=== PATIENT | male | born 1975 | race Caucasian/White ===

== ENCOUNTER 2016-10-07 13:46 | Emergency (ER) | payer OTHER ==
[~2016-10-07] VITALS: Ht 182.9 cm; Wt 127.8 kg
[~2016-10-07 13:46] MED LIST: ALLERGY MED; BENTYL10 MG PO; BENTYL20 MG PO; CIPRO500 MG PO; DEPAKOTE; DEPAKOTE500 MG PO; Depakote PO; FLAGYL250 MG PO; FLAGYL500 MG PO; FLONASE16 G1 BOTH NARES; FLORA-Q CAPSUL1 EACH PO; Flagyl PO; KENALOG,ARISTOC80 GM PO; KEPPRA500 MG PO; METRONIDAZOLE500 MG PO; NASONEX17 GM NS; PAIN RELIEF EX500 MG PO; SINGULAIR; SINGULAIR10 MG PO; TEGRETOL; TEGRETOL200 MG PO; TEGretol PO; TYLENOL WITH C1 EACH PO; ULTRAM50 MG PO; VANCOMYCIN HCL125 MG PO; [UNRECOGNIZED DRUG - OTHER] PO
[2016-10-07 14:54] LABS: BASOPHIL COUNT 0.1 K/uL (0-0.1); EOSINOPHIL (%) 0 % (0-5); HEMATOCRIT 37.4 % (38.0-50.0); IMMATURE GRANULOCYTE (%) 1.3 % (0.0-0.7); IMMATURE GRANULOCYTE COUNT 0.1 K/uL; INSTRUMENT ABS NEUTROPHIL CT 4.6 K/uL; LYMPHOCYTE COUNT 1.5 K/uL (1.0-2.8); MCH 29.7 PG (29.0-34.0); MCHC 32.4 G/DL (30.0-36.0); MCV 91.7 FL (86-99); MEAN PLAT.VOLUME 10.4 uM^3 (9.0-12.4); MONOCYTE (%) 12.5 % (3-12); MONOCYTE COUNT 0.9 K/uL (0-0.8); NEUTROPHIL (%) 64.2 % (45-76); NEUTROPHIL COUNT 4.6 K/uL (1.8-6.4); PLATELET COUNT 205 K/uL (156-360); RBC DIS.WIDTH-CV 12.7 % (11.8-14.6); RED BLOOD COUNT 4.08 M/uL (4.00-5.50); WHITE BLOOD COUNT 7.2 K/uL (4.1-10.2)
[2016-10-07 15:01] LABS: CHLORIDE 105 mEq/L (99-109); POTASSIUM 5.7 mEq/L (3.7-5.4); SODIUM 140 mEq/L (136-147)
[2016-10-07 15:03] LABS: GLUCOSE 79 mg/dL (70-99)
[2016-10-07 15:04] LABS: ANION GAP 11 MEQ/L (2-14)
[2016-10-07 15:07] LABS: GFR ESTIMATE (CALCULATED) 42 mL/min/
[2016-10-07 15:08] LABS: UREA NITROGEN (BUN) 34 mg/dL (9-23)
[2016-10-07 15:14] LABS: TROP-I INTERPRETATION NEGATIVE; TROPONIN-I 0.02 ng/mL (0.0-0.30)
[2016-10-07 19:17] VITALS: BP 93/52
== END 2016-10-07 19:24 | disposition home or self-care (01) ==
LOC: EME 13:46
PROVIDERS: Emergency Medicine
DX: R55 Syncope and collapse (principal); E87.5 Hyperkalemia; R05 Cough; R53.1 Weakness; G40.909 Epilepsy, unspecified, not intractable, without status epilepticus; Z87.891 Personal history of nicotine dependence
CPT/HCPCS: 80048; 84484; 85025; 93005; 99281; 99285; J7030

== ENCOUNTER 2016-11-07 12:49 | Inpatient (IN) | payer OTHER ==
[~2016-11-07] VITALS: Ht 188 cm; Wt 125.0 kg
[2016-11-07 13:29] LABS: MCH 29.8 PG (29.0-34.0); MCHC 32.7 G/DL (30.0-36.0); MCV 90.9 FL (86-99); MEAN PLAT.VOLUME 10.3 uM^3 (9.0-12.4); PLATELET COUNT 196 K/uL (156-360); RBC DIS.WIDTH-CV 12.5 % (11.8-14.6); RBC DIS.WIDTH-SD 41.5 % (39-53); RED BLOOD COUNT 3.63 M/uL (4.00-5.50); WHITE BLOOD COUNT 4.7 K/uL (4.1-10.2)
[2016-11-07 13:37] LABS: CHLORIDE 104 mEq/L (99-109); SODIUM 138 mEq/L (136-147)
[2016-11-07 13:40] LABS: GLUCOSE 123 mg/dL (70-99)
[2016-11-07 13:41] LABS: ANION GAP 10 MEQ/L (2-14)
[2016-11-07 13:42] LABS: TOTAL BILIRUBIN 0.3 mg/dL (0.0-1.0)
[2016-11-07 13:43] LABS: ALKALINE PHOSPHATASE 58 IU/L (3-129); GFR ESTIMATE (CALCULATED) 27 mL/min/
[2016-11-07 13:44] LABS: UREA NITROGEN (BUN) 45 mg/dL (9-23)
[2016-11-07 13:47] LABS: LIPASE 63 U/L (1.0-51.0)
[2016-11-07 15:09] LABS: C DIFF TOXIN POSITIVE (NEGATIVE); PROBE CHECK PASS
[2016-11-07] MEDS ORDERED: KEPPRA750 MG PO (16:23)
[2016-11-07] MEDS ORDERED: FENOFIBRATE145 M1 PO (16:24)
[2016-11-07] MEDS ORDERED: LEVOTHYROXINE50 MCG PO (16:24)
[2016-11-07] MEDS ORDERED: SALINE NASAL SP45 ML BOTH NARES (16:24)
[2016-11-07] MEDS ORDERED: DEPAKOTE500 MG PO (16:24)
[2016-11-07 17:55] VITALS: BP 128/71
[2016-11-07 21:59] LABS: ANION GAP 9 MEQ/L (2-14); CHLORIDE 107 MEQ/L (99-109); SAMPLE HEMOLYSIS CHECK 0; SAMPLE ICTERIC CHECK 0; SAMPLE LIPEMIA CHECK 0; SODIUM 138 MEQ/L (136-147); UREA NITROGEN (BUN) 42 mg/dL (9-23)
[2016-11-07 22:06] LABS: GFR ESTIMATE (CALCULATED) 38 mL/min/; GLUCOSE 90 mg/dL (70-99); POTASSIUM 4.5 MEQ/L (3.7-5.4)
[2016-11-07 23:17] VITALS: BP 128/79
[2016-11-08 04:38] LABS: HEMATOCRIT 30.8 % (38.0-50.0); MCH 29.9 PG (29.0-34.0); MCHC 32.5 G/DL (30.0-36.0); MCV 91.9 FL (86-99); MEAN PLAT.VOLUME 10.2 uM^3 (9.0-12.4); PLATELET COUNT 169 K/uL (156-360); RBC DIS.WIDTH-CV 12.4 % (11.8-14.6); RBC DIS.WIDTH-SD 41.7 % (39-53); RED BLOOD COUNT 3.35 M/uL (4.00-5.50); WHITE BLOOD COUNT 5.6 K/uL (4.1-10.2)
[2016-11-08 04:45] LABS: CHLORIDE 111 mEq/L (99-109); POTASSIUM 4.3 mEq/L (3.7-5.4); SODIUM 138 mEq/L (136-147)
[2016-11-08 04:48] LABS: GLUCOSE 90 mg/dL (70-99)
[2016-11-08 04:49] LABS: ANION GAP 9 MEQ/L (2-14); TOTAL BILIRUBIN 0.3 mg/dL (0.0-1.0)
[2016-11-08 04:51] LABS: ALKALINE PHOSPHATASE 43 IU/L (3-129); GFR ESTIMATE (CALCULATED) 45 mL/min/
[2016-11-08 04:52] LABS: UREA NITROGEN (BUN) 33 mg/dL (9-23)
[2016-11-08 07:20] VITALS: BP 118/68
[2016-11-08 15:37] VITALS: BP 120/78
[2016-11-08 23:06] VITALS: BP 135/58
[2016-11-09 03:58] VITALS: BP 121/61
[2016-11-09 06:54] LABS: EOSINOPHIL (%) 0 % (0-5); HEMATOCRIT 30.5 % (38.0-50.0); IMMATURE GRANULOCYTE COUNT 0.1 K/uL; INSTRUMENT ABS NEUTROPHIL CT 2.6 K/uL; LYMPHOCYTE COUNT 1.7 K/uL (1.0-2.8); MCH 29.4 PG (29.0-34.0); MCHC 31.5 G/DL (30.0-36.0); MCV 93.6 FL (86-99); MEAN PLAT.VOLUME 10.6 uM^3 (9.0-12.4); MONOCYTE COUNT 0.7 K/uL (0-0.8); NEUTROPHIL (%) 50.9 % (45-76); NEUTROPHIL COUNT 2.6 K/uL (1.8-6.4); PLATELET COUNT 154 K/uL (156-360); RBC DIS.WIDTH-CV 12.5 % (11.8-14.6); RED BLOOD COUNT 3.26 M/uL (4.00-5.50); WHITE BLOOD COUNT 5.2 K/uL (4.1-10.2)
[2016-11-09] MEDS ORDERED: VANCOCIN HCL125 MG PO (07:07)
[2016-11-09 07:22] LABS: ALKALINE PHOSPHATASE 32 IU/L (3-129); ANION GAP 9 MEQ/L (2-14); CHLORIDE 109 MEQ/L (99-109); GFR ESTIMATE (CALCULATED) 51 mL/min/; GLUCOSE 76 mg/dL (70-99); POTASSIUM 4.6 MEQ/L (3.7-5.4); SAMPLE HEMOLYSIS CHECK 0; SAMPLE ICTERIC CHECK 0; SAMPLE LIPEMIA CHECK 0; SODIUM 139 MEQ/L (136-147); TOTAL BILIRUBIN 0.4 MG/DL (0.0-1.0); UREA NITROGEN (BUN) 19 mg/dL (9-23)
[2016-11-09 07:36] VITALS: BP 126/65
[2016-11-09 11:47] VITALS: BP 129/66
== END 2016-11-09 13:10 | disposition home or self-care (01) | DRG 372 ==
LOC: EME 12:49 → EDOF 16:21 → 5EAST 16:21
PROVIDERS: Emergency Medicine; Nurse Practitioner Adult Health; Pediatrics
DX: A04.7 Enterocolitis due to Clostridium difficile (principal); N17.9 Acute kidney failure, unspecified; E87.5 Hyperkalemia; E11.9 Type 2 diabetes mellitus without complications; D64.9 Anemia, unspecified; R56.9 Unspecified convulsions; F79 Unspecified intellectual disabilities
CPT/HCPCS: 80048 91; 80053; 83605; 83690; 85025; 85027; 87493; 93005; 99281; 99285; J7030

== ENCOUNTER 2017-01-14 16:01 | Inpatient (IN) | payer OTHER ==
[~2017-01-14] VITALS: Ht 182.9 cm; Wt 118.5 kg
[~2017-01-14 16:01] MED LIST changes: +FENOFIBRATE145 M1 PO; +KEPPRA750 MG PO; +LEVOTHYROXINE50 MCG PO; +SALINE NASAL SP45 ML BOTH NARES; +VANCOCIN HCL125 MG PO
[2017-01-14 17:54] LABS: HEMATOCRIT 33.3 % (38.0-50.0); MCH 29.9 PG (29.0-34.0); MCHC 32.7 G/DL (30.0-36.0); MCV 91.2 FL (86-99); MEAN PLAT.VOLUME 10.7 uM^3 (9.0-12.4); PLATELET COUNT 170 K/uL (156-360); RBC DIS.WIDTH-CV 12.8 % (11.8-14.6); RED BLOOD COUNT 3.65 M/uL (4.00-5.50); WHITE BLOOD COUNT 10.4 K/uL (4.1-10.2)
[2017-01-14 18:04] LABS: CHLORIDE 103 mEq/L (99-109); POTASSIUM 5.1 mEq/L (3.7-5.4); SODIUM 135 mEq/L (136-147)
[2017-01-14 18:06] LABS: GLUCOSE 87 mg/dL (70-99)
[2017-01-14 18:07] LABS: ANION GAP 12 MEQ/L (2-14)
[2017-01-14 18:08] LABS: TOTAL BILIRUBIN 0.6 mg/dL (0.0-1.0)
[2017-01-14 18:09] LABS: ALKALINE PHOSPHATASE 42 IU/L (3-129)
[2017-01-14 18:10] LABS: GFR ESTIMATE (CALCULATED) 29 mL/min/
[2017-01-14 18:11] LABS: UREA NITROGEN (BUN) 39 mg/dL (9-23)
[2017-01-14 18:13] LABS: LIPASE 48 U/L (1.0-51.0)
[2017-01-14 18:57] LABS: C DIFF TOXIN POSITIVE (NEGATIVE)
[2017-01-14 18:59] LABS: PROBE CHECK PASS
[2017-01-14] MEDS ORDERED: KEPPRA750 MG PO (20:49)
[2017-01-15 01:30] VITALS: BP 98/48
[2017-01-15 08:07] VITALS: BP 119/64
[2017-01-15 09:08] LABS: EOSINOPHIL (%) 0 % (0-5); HEMATOCRIT 28.6 % (38.0-50.0); IMMATURE GRANULOCYTE (%) 1.3 % (0.0-0.7); IMMATURE GRANULOCYTE COUNT 0.1 K/uL; LYMPHOCYTE COUNT 1.3 K/uL (1.0-2.8); MCH 29.8 PG (29.0-34.0); MCHC 32.2 G/DL (30.0-36.0); MCV 92.6 FL (86-99); MEAN PLAT.VOLUME 10.4 uM^3 (9.0-12.4); MONOCYTE (%) 10.9 % (3-12); MONOCYTE COUNT 0.9 K/uL (0-0.8); NEUTROPHIL (%) 72.4 % (45-76); PLATELET COUNT 143 K/uL (156-360); RBC DIS.WIDTH-CV 12.8 % (11.8-14.6); RBC DIS.WIDTH-SD 43.3 % (39-53); RED BLOOD COUNT 3.09 M/uL (4.00-5.50); WHITE BLOOD COUNT 8.3 K/uL (4.1-10.2)
[2017-01-15 09:35] LABS: ANION GAP 7 MEQ/L (2-14); CHLORIDE 105 MEQ/L (99-109); GFR ESTIMATE (CALCULATED) 34 mL/min/; GLUCOSE 112 mg/dL (70-99); POTASSIUM 4.2 MEQ/L (3.7-5.4); SAMPLE HEMOLYSIS CHECK 0; SAMPLE ICTERIC CHECK 0; SAMPLE LIPEMIA CHECK 0; SODIUM 135 MEQ/L (136-147); UREA NITROGEN (BUN) 31 mg/dL (9-23)
[2017-01-15 11:25] VITALS: BP 127/70
[2017-01-15 12:01] LABS: POINT-OF-CARE METER ID UU14149397
[2017-01-15 12:29] LABS: ADD MIUA? NO; BILIRUBIN NEGATIVE; BLOOD NEGATIVE; COLOR YELLOW ((YELLOW)); GLUCOSE (STRIP) 150; KETONES NEGATIVE; LEUKOCYTES NEGATIVE; NITRITE NEGATIVE; PROTEIN (STRIP) NEGATIVE; SPECIFIC GRAVITY 1.005 (1.000-1.030); UCUL ADDED? NO; UROBILINOGEN 0.2 MG/DL (0.2-1.0)
[2017-01-15 16:47] LABS: POINT-OF-CARE METER ID UU14149397
[2017-01-15 16:50] VITALS: BP 110/58
[2017-01-15 19:42] VITALS: BP 93/47
[2017-01-15 20:28] LABS: POINT-OF-CARE METER ID UU14188577; POINT-OF-CARE USER ID 609231305
[2017-01-15 23:45] VITALS: BP 120/62
[2017-01-16 04:28] VITALS: BP 96/53
[2017-01-16 06:57] LABS: EOSINOPHIL (%) 0 % (0-5); IMMATURE GRANULOCYTE (%) 2.9 % (0.0-0.7); IMMATURE GRANULOCYTE COUNT 0.1 K/uL; INSTRUMENT ABS NEUTROPHIL CT 2.6 K/uL; LYMPHOCYTE COUNT 1.3 K/uL (1.0-2.8); MCH 30.6 PG (29.0-34.0); MCHC 32.7 G/DL (30.0-36.0); MCV 93.8 FL (86-99); MEAN PLAT.VOLUME 10.6 uM^3 (9.0-12.4); MONOCYTE (%) 10.7 % (3-12); MONOCYTE COUNT 0.5 K/uL (0-0.8); NEUTROPHIL (%) 57.9 % (45-76); NEUTROPHIL COUNT 2.6 K/uL (1.8-6.4); PLATELET COUNT 147 K/uL (156-360); RBC DIS.WIDTH-CV 12.7 % (11.8-14.6); RBC DIS.WIDTH-SD 43.4 % (39-53); WHITE BLOOD COUNT 4.6 K/uL (4.1-10.2)
[2017-01-16 08:21] VITALS: BP 128/76
[2017-01-16 08:22] LABS: ANION GAP 10 MEQ/L (2-14); CHLORIDE 108 MEQ/L (99-109); GFR ESTIMATE (CALCULATED) 45 mL/min/; POTASSIUM 4.7 MEQ/L (3.7-5.4); SAMPLE HEMOLYSIS CHECK 0; SAMPLE ICTERIC CHECK 0; SAMPLE LIPEMIA CHECK 0; SODIUM 140 MEQ/L (136-147); UREA NITROGEN (BUN) 22 mg/dL (9-23)
[2017-01-16 08:24] LABS: GLUCOSE 81 mg/dL (70-99)
[2017-01-16 11:31] LABS: POINT-OF-CARE METER ID UU14149397
[2017-01-16 11:52] VITALS: BP 126/70
[2017-01-16] MEDS ORDERED: VANCOCIN HCL125 MG PO (14:56)
[2017-01-16 15:42] VITALS: BP 122/76
[2017-01-16 16:34] LABS: POINT-OF-CARE METER ID UU14188577
== END 2017-01-16 17:20 | disposition home health service (06) | DRG 372 ==
LOC: EME 16:01 → 3EAST 23:53 → EDOF 23:53 → 3EAST 01-15 01:30
PROVIDERS: Hospitalist; Pediatrics; Physician Assistant; Physician Assistant Medical
PROC: 8E0ZXY6 Isolation (ICD-10-PCS; principal; 2017-01-14)
DX: A04.7 Enterocolitis due to Clostridium difficile (principal); N17.9 Acute kidney failure, unspecified; K57.32 Diverticulitis of large intestine without perforation or abscess without bleeding; E03.9 Hypothyroidism, unspecified; J30.9 Allergic rhinitis, unspecified; N18.2 Chronic kidney disease, stage 2 (mild); F79 Unspecified intellectual disabilities; E11.22 Type 2 diabetes mellitus with diabetic chronic kidney disease; E86.0 Dehydration; D63.1 Anemia in chronic kidney disease; G40.909 Epilepsy, unspecified, not intractable, without status epilepticus; E66.9 Obesity, unspecified; Z68.35 Body mass index [BMI] 35.0-35.9, adult; Z87.891 Personal history of nicotine dependence; Z83.3 Family history of diabetes mellitus; Z60.2 Problems related to living alone
CPT/HCPCS: 74176; 80048; 80053; 81003; 82948; 83605; 83690; 85025; 85027; 87493; 87506; 99281; 99284; J1644; J2405; J3010; J7030; S0030

== ENCOUNTER 2017-01-31 19:30 | Inpatient (IN) | payer OTHER ==
[~2017-01-31] VITALS: Ht 188 cm; Wt 119.4 kg
[2017-01-31 22:20] LABS: INSTRUMENT ABS NEUTROPHIL CT 2.1 K/uL
[2017-01-31 22:23] LABS: HEMATOCRIT ND % (38.0-50.0); MCH ND PG (29.0-34.0); MCHC ND G/DL (30.0-36.0); MCV ND FL (86-99); RBC DIS.WIDTH-SD ND % (39-53); RED BLOOD COUNT ND M/uL (4.00-5.50); WHITE BLOOD COUNT ND K/uL (4.1-10.2)
[2017-01-31 22:24] LABS: EOSINOPHIL (%) ND % (0-5); IMM.PLATELET FRACTION ND (1-7); IMMATURE GRANULOCYTE (%) ND % (0.0-0.7); LYMPHOCYTE COUNT ND K/uL (1.0-2.8); MEAN PLAT.VOLUME ND uM^3 (9.0-12.4); MONOCYTE (%) ND % (3-12); MONOCYTE COUNT ND K/uL (0-0.8); NEUTROPHIL (%) ND % (45-76); PLATELET COUNT ND K/uL (156-360); RBC DIS.WIDTH-CV ND % (11.8-14.6)
[2017-01-31 22:25] LABS: BASOPHIL COUNT ND K/uL (0-0.1); EOSINOPHIL COUNT ND K/uL (0-0.3); IMMATURE GRANULOCYTE COUNT ND K/uL; NEUTROPHIL COUNT ND K/uL (1.8-6.4); NRBC (%) ND /100 WBC (0-0); NRBC COUNT ND K/uL (0-0)
[2017-01-31 22:35] LABS: CHLORIDE 108 mEq/L (99-109); POTASSIUM 4.8 mEq/L (3.7-5.4); SODIUM 137 mEq/L (136-147)
[2017-01-31 22:36] LABS: GLUCOSE 79 mg/dL (70-99)
[2017-01-31 22:38] LABS: ANION GAP 9 MEQ/L (2-14)
[2017-01-31 22:40] LABS: GFR ESTIMATE (CALCULATED) 40 mL/min/
[2017-01-31 22:41] LABS: UREA NITROGEN (BUN) 35 mg/dL (9-23)
[2017-01-31 22:43] LABS: TROP-I INTERPRETATION NEGATIVE; TROPONIN-I < 0.01 ng/mL (0.0-0.30)
[2017-01-31 22:54] LABS: EOSINOPHIL (%) 0 % (0-5); HEMATOCRIT 31.2 % (38.0-50.0); IMMATURE GRANULOCYTE (%) 1.2 % (0.0-0.7); IMMATURE GRANULOCYTE COUNT 0.1 K/uL; INSTRUMENT ABS NEUTROPHIL CT 2.2 K/uL; LYMPHOCYTE COUNT 1.5 K/uL (1.0-2.8); MCH 29.9 PG (29.0-34.0); MCHC 32.7 G/DL (30.0-36.0); MCV 91.5 FL (86-99); MEAN PLAT.VOLUME 10.4 uM^3 (9.0-12.4); MONOCYTE (%) 12.6 % (3-12); MONOCYTE COUNT 0.5 K/uL (0-0.8); NEUTROPHIL (%) 50.9 % (45-76); NEUTROPHIL COUNT 2.2 K/uL (1.8-6.4); PLATELET COUNT 189 K/uL (156-360); RBC DIS.WIDTH-CV 12.5 % (11.8-14.6); RBC DIS.WIDTH-SD 41.6 % (39-53); RED BLOOD COUNT 3.41 M/uL (4.00-5.50); WHITE BLOOD COUNT 4.2 K/uL (4.1-10.2)
[2017-02-01] VITALS (9 sets, daily range): BP systolic 92–128; BP diastolic 50–79
[2017-02-01 07:56] LABS: POINT-OF-CARE METER ID UU13113700
[2017-02-01 10:14] LABS: ANION GAP 8 MEQ/L (2-14); CHLORIDE 108 MEQ/L (99-109); GFR ESTIMATE (CALCULATED) 48 mL/min/; GLUCOSE 86 mg/dL (70-99); POTASSIUM 4.6 MEQ/L (3.7-5.4); SAMPLE HEMOLYSIS CHECK 0; SAMPLE ICTERIC CHECK 0; SAMPLE LIPEMIA CHECK 0; SODIUM 139 MEQ/L (136-147); UREA NITROGEN (BUN) 30 mg/dL (9-23)
[2017-02-01 11:46] LABS: POINT-OF-CARE METER ID UU13113700
[2017-02-01 17:16] LABS: POINT-OF-CARE METER ID UU13113700
[2017-02-01 18:42] LABS: TROP-I INTERPRETATION NEGATIVE; TROPONIN-I < 0.01 ng/mL (0.0-0.30)
[2017-02-01 21:54] LABS: POINT-OF-CARE METER ID UU13113700
[2017-02-02 01:35] LABS: TROP-I INTERPRETATION NEGATIVE; TROPONIN-I < 0.01 ng/mL (0.0-0.30)
[2017-02-02 04:07] VITALS: BP 102/53
[2017-02-02 05:58] LABS: EOSINOPHIL (%) 0 % (0-5); HEMATOCRIT 29.4 % (38.0-50.0); IMMATURE GRANULOCYTE (%) 1.4 % (0.0-0.7); IMMATURE GRANULOCYTE COUNT 0.1 K/uL; INSTRUMENT ABS NEUTROPHIL CT 1.8 K/uL; MCH 30.4 PG (29.0-34.0); MCV 92.2 FL (86-99); MEAN PLAT.VOLUME 10.3 uM^3 (9.0-12.4); MONOCYTE (%) 10.7 % (3-12); MONOCYTE COUNT 0.5 K/uL (0-0.8); NEUTROPHIL (%) 41.1 % (45-76); NEUTROPHIL COUNT 1.8 K/uL (1.8-6.4); PLATELET COUNT 183 K/uL (156-360); RBC DIS.WIDTH-CV 12.5 % (11.8-14.6); RBC DIS.WIDTH-SD 42.1 % (39-53); RED BLOOD COUNT 3.19 M/uL (4.00-5.50); WHITE BLOOD COUNT 4.4 K/uL (4.1-10.2)
[2017-02-02 06:31] LABS: ANION GAP 8 MEQ/L (2-14); CHLORIDE 106 MEQ/L (99-109); GFR ESTIMATE (CALCULATED) 48 mL/min/; GLUCOSE 78 mg/dL (70-99); SAMPLE HEMOLYSIS CHECK 0; SAMPLE ICTERIC CHECK 0; SAMPLE LIPEMIA CHECK 0; SODIUM 139 MEQ/L (136-147); UREA NITROGEN (BUN) 25 mg/dL (9-23)
[2017-02-02 07:59] VITALS: BP 121/59
[2017-02-02 12:07] VITALS: BP 100/60
[2017-02-02] MEDS ORDERED: HYDROCORTISONE5 MG PO (12:46)
== END 2017-02-02 15:53 | disposition home health service (06) | DRG 644 ==
LOC: EME → EDBD 19:30 → EME 19:30 → EDOF 23:07 → 5WEST 23:07 → EDOF 23:07 → 5WEST 02-01 00:24
PROVIDERS: Emergency Medicine; Internal Medicine
DX: E27.40 Unspecified adrenocortical insufficiency (principal); N17.9 Acute kidney failure, unspecified; I95.1 Orthostatic hypotension; E86.0 Dehydration; E11.22 Type 2 diabetes mellitus with diabetic chronic kidney disease; I12.9 Hypertensive chronic kidney disease with stage 1 through stage 4 chronic kidney disease, or unspecified chronic kidney disease; N18.3 Chronic kidney disease, stage 3 (moderate); D64.9 Anemia, unspecified; E03.9 Hypothyroidism, unspecified; E78.5 Hyperlipidemia, unspecified; G40.909 Epilepsy, unspecified, not intractable, without status epilepticus; F79 Unspecified intellectual disabilities; E66.9 Obesity, unspecified; Z68.33 Body mass index [BMI] 33.0-33.9, adult; Z87.891 Personal history of nicotine dependence
CPT/HCPCS: 71010; 80048; 82533 91; 82948; 84443; 84484; 85025; 85025 91; 93005; 93306; 99281; 99285; G0378; J1650; J7030; J7040

== ENCOUNTER 2017-02-03 16:29 | Inpatient (IN) | payer OTHER ==
[~2017-02-03] VITALS: Ht 182.9 cm; Wt 117.3 kg
[~2017-02-03 16:29] MED LIST changes: +HYDROCORTISONE5 MG PO
[2017-02-03 17:42] LABS: HEMATOCRIT 30.7 % (38.0-50.0); MCH 29.9 PG (29.0-34.0); MCHC 32.6 G/DL (30.0-36.0); MCV 91.6 FL (86-99); MEAN PLAT.VOLUME 10.1 uM^3 (9.0-12.4); PLATELET COUNT 207 K/uL (156-360); RBC DIS.WIDTH-CV 12.6 % (11.8-14.6); RBC DIS.WIDTH-SD 41.8 % (39-53); RED BLOOD COUNT 3.35 M/uL (4.00-5.50)
[2017-02-03 17:52] LABS: CHLORIDE 107 mEq/L (99-109); POTASSIUM 4.8 mEq/L (3.7-5.4); SODIUM 139 mEq/L (136-147)
[2017-02-03 17:53] LABS: GLUCOSE 88 mg/dL (70-99)
[2017-02-03 17:55] LABS: ANION GAP 10 MEQ/L (2-14)
[2017-02-03 17:57] LABS: GFR ESTIMATE (CALCULATED) 29 mL/min/
[2017-02-03 17:58] LABS: UREA NITROGEN (BUN) 33 mg/dL (9-23)
[2017-02-03 18:05] LABS: TROP-I INTERPRETATION NEGATIVE; TROPONIN-I 0.02 ng/mL (0.0-0.30)
[2017-02-03 20:42] VITALS: BP 102/61
[2017-02-03 20:57] VITALS: BP 102/61
[2017-02-04 01:49] LABS: TROP-I INTERPRETATION NEGATIVE; TROPONIN-I < 0.01 ng/mL (0.0-0.30)
[2017-02-04 04:16] VITALS: BP 90/51
[2017-02-04 06:13] LABS: HEMATOCRIT 30.2 % (38.0-50.0); MCH 30.2 PG (29.0-34.0); MCHC 32.8 G/DL (30.0-36.0); MCV 92.1 FL (86-99); MEAN PLAT.VOLUME 10.3 uM^3 (9.0-12.4); PLATELET COUNT 221 K/uL (156-360); RBC DIS.WIDTH-CV 12.5 % (11.8-14.6); RBC DIS.WIDTH-SD 41.9 % (39-53); RED BLOOD COUNT 3.28 M/uL (4.00-5.50)
[2017-02-04 06:35] LABS: TROP-I INTERPRETATION NEGATIVE; TROPONIN-I < 0.01 ng/mL (0.0-0.30)
[2017-02-04 06:59] LABS: ANION GAP 9 MEQ/L (2-14); CHLORIDE 105 MEQ/L (99-109); GFR ESTIMATE (CALCULATED) 38 mL/min/; POTASSIUM 4.8 MEQ/L (3.7-5.4); SAMPLE HEMOLYSIS CHECK 0; SAMPLE ICTERIC CHECK 0; SAMPLE LIPEMIA CHECK 0; SODIUM 136 MEQ/L (136-147); UREA NITROGEN (BUN) 30 mg/dL (9-23)
[2017-02-04 07:04] LABS: GLUCOSE 149 mg/dL (70-99)
[2017-02-04 07:47] VITALS: BP 116/71
[2017-02-04 11:37] VITALS: BP 92/55
[2017-02-04 15:22] VITALS: BP 120/80
[2017-02-04 19:05] VITALS: BP 153/72
[2017-02-04 23:35] VITALS: BP 130/60
[2017-02-05 02:44] VITALS: BP 130/60
[2017-02-05 05:38] LABS: BASOPHIL COUNT 0.1 K/uL (0-0.1); EOSINOPHIL (%) 0 % (0-5); HEMATOCRIT 31.4 % (38.0-50.0); IMMATURE GRANULOCYTE (%) 2.8 % (0.0-0.7); IMMATURE GRANULOCYTE COUNT 0.2 K/uL; INSTRUMENT ABS NEUTROPHIL CT 4.5 K/uL; LYMPHOCYTE COUNT 2.8 K/uL (1.0-2.8); MCH 30.6 PG (29.0-34.0); MCHC 33.4 G/DL (30.0-36.0); MCV 91.5 FL (86-99); MEAN PLAT.VOLUME 10.9 uM^3 (9.0-12.4); MONOCYTE COUNT 0.8 K/uL (0-0.8); NEUTROPHIL (%) 53.4 % (45-76); NEUTROPHIL COUNT 4.5 K/uL (1.8-6.4); PLATELET COUNT 229 K/uL (156-360); RBC DIS.WIDTH-CV 12.7 % (11.8-14.6); RBC DIS.WIDTH-SD 41.9 % (39-53); RED BLOOD COUNT 3.43 M/uL (4.00-5.50); WHITE BLOOD COUNT 8.4 K/uL (4.1-10.2)
[2017-02-05 06:03] LABS: ALKALINE PHOSPHATASE 55 IU/L (3-129); ANION GAP 8 MEQ/L (2-14); CHLORIDE 103 MEQ/L (99-109); GFR ESTIMATE (CALCULATED) 48 mL/min/; POTASSIUM 4.4 MEQ/L (3.7-5.4); SAMPLE HEMOLYSIS CHECK 0; SAMPLE ICTERIC CHECK 0; SAMPLE LIPEMIA CHECK 0; SODIUM 136 MEQ/L (136-147); TOTAL BILIRUBIN 0.3 MG/DL (0.0-1.0); UREA NITROGEN (BUN) 24 mg/dL (9-23)
[2017-02-05 06:04] LABS: GLUCOSE 93 mg/dL (70-99)
[2017-02-05] MEDS ORDERED: MIDODRINE HCL5 MG PO (07:55)
[2017-02-05] MEDS ORDERED: FAMOTIDINE20 MG PO (07:55)
[2017-02-05] MEDS ORDERED: HYDROCORTISONE20 MG PO (07:55)
[2017-02-05 08:38] VITALS: BP 104/62
== END 2017-02-05 12:31 | disposition home health service (06) | DRG 645 ==
LOC: EME 16:29 → 4EAST 19:37 → EDOF 19:37 → 4EAST 20:40
PROVIDERS: Emergency Medicine; Hospitalist; Nurse Practitioner Adult Health
DX: E27.40 Unspecified adrenocortical insufficiency (principal); I95.9 Hypotension, unspecified; I12.9 Hypertensive chronic kidney disease with stage 1 through stage 4 chronic kidney disease, or unspecified chronic kidney disease; N18.3 Chronic kidney disease, stage 3 (moderate); E11.22 Type 2 diabetes mellitus with diabetic chronic kidney disease; G40.909 Epilepsy, unspecified, not intractable, without status epilepticus; F79 Unspecified intellectual disabilities; E66.9 Obesity, unspecified; Z68.33 Body mass index [BMI] 33.0-33.9, adult; Z87.891 Personal history of nicotine dependence
CPT/HCPCS: 71010; 80048; 80053; 81003; 84484; 85025; 85027; 93005; 99281; 99285; J1650; J1720; J7030

== ENCOUNTER 2017-02-25 12:34 | Emergency (ER) | payer OTHER ==
[~2017-02-25] VITALS: Ht 195.6 cm; Wt 119.6 kg
[~2017-02-25 12:34] MED LIST changes: +FAMOTIDINE20 MG PO; +HYDROCORTISONE20 MG PO; +MIDODRINE HCL5 MG PO
[2017-02-25 15:10] LABS: HEMATOCRIT 34.3 % (38.0-50.0); MCH 29.9 PG (29.0-34.0); MCHC 32.1 G/DL (30.0-36.0); MCV 93.2 FL (86-99); MEAN PLAT.VOLUME 10.3 uM^3 (9.0-12.4); PLATELET COUNT 200 K/uL (156-360); RBC DIS.WIDTH-SD 44.7 % (39-53); RED BLOOD COUNT 3.68 M/uL (4.00-5.50); WHITE BLOOD COUNT 5.7 K/uL (4.1-10.2)
[2017-02-25 15:19] LABS: CHLORIDE 107 mEq/L (99-109); POTASSIUM 5.8 mEq/L (3.7-5.4); SODIUM 137 mEq/L (136-147)
[2017-02-25 15:21] LABS: GLUCOSE 89 mg/dL (70-99)
[2017-02-25 15:22] LABS: ANION GAP 8 MEQ/L (2-14)
[2017-02-25 15:24] LABS: GFR ESTIMATE (CALCULATED) 48 mL/min/
[2017-02-25 15:25] LABS: UREA NITROGEN (BUN) 39 mg/dL (9-23)
[2017-02-25] MEDS ORDERED: BENTYL20 MG PO (16:58)
[2017-02-25 17:04] LABS: INTERNAL CONTROL VALID? YES
[2017-02-25 17:39] LABS: C DIFF TOXIN POSITIVE (NEGATIVE)
[2017-02-25 17:41] LABS: PROBE CHECK PASS
[2017-02-25] MEDS ORDERED: FLAGYL500 MG PO (17:44)
[2017-02-25] MEDS ORDERED: CIPRO500 MG PO (17:44)
[2017-02-25 18:23] VITALS: BP 150/75
== END 2017-02-25 18:27 | disposition home or self-care (01) ==
LOC: EME 12:34 → EXP 12:34
PROVIDERS: Nurse Practitioner Family
DX: A04.7 Enterocolitis due to Clostridium difficile (principal); R10.32 Left lower quadrant pain; F79 Unspecified intellectual disabilities; Z87.891 Personal history of nicotine dependence
CPT/HCPCS: 80048; 83630; 85027; 87493

== ENCOUNTER 2017-03-13 18:17 | Emergency (ER) | payer OTHER ==
[~2017-03-13] VITALS: Ht 185.4 cm; Wt 122.1 kg
[2017-03-13 20:02] LABS: HEMATOCRIT 33.2 % (38.0-50.0); MCH 30.1 PG (29.0-34.0); MCHC 32.2 G/DL (30.0-36.0); MCV 93.5 FL (86-99); MEAN PLAT.VOLUME 9.9 uM^3 (9.0-12.4); PLATELET COUNT 195 K/uL (156-360); RBC DIS.WIDTH-CV 12.8 % (11.8-14.6); RBC DIS.WIDTH-SD 44.3 % (39-53); RED BLOOD COUNT 3.55 M/uL (4.00-5.50); WHITE BLOOD COUNT 6.1 K/uL (4.1-10.2)
[2017-03-13 20:11] LABS: CHLORIDE 107 mEq/L (99-109); POTASSIUM 4.5 mEq/L (3.7-5.4); SODIUM 138 mEq/L (136-147)
[2017-03-13 20:13] LABS: GLUCOSE 96 mg/dL (70-99)
[2017-03-13 20:14] LABS: ANION GAP 10 MEQ/L (2-14)
[2017-03-13 20:16] LABS: GFR ESTIMATE (CALCULATED) 42 mL/min/
[2017-03-13 20:17] LABS: UREA NITROGEN (BUN) 45 mg/dL (9-23)
[2017-03-13 22:14] VITALS: BP 126/53
== END 2017-03-13 22:15 | disposition home or self-care (01) ==
LOC: EME 18:17
PROVIDERS: Emergency Medicine
DX: K52.9 Noninfective gastroenteritis and colitis, unspecified (principal); E86.0 Dehydration; I10 Essential (primary) hypertension; E11.9 Type 2 diabetes mellitus without complications; R56.9 Unspecified convulsions; Z87.891 Personal history of nicotine dependence
CPT/HCPCS: 74000; 80048; 83605; 85027; 93005; 99281; 99285; J7030

== ENCOUNTER 2017-03-29 16:08 | Inpatient (IN) | payer OTHER ==
[~2017-03-29] VITALS: Ht 182.9 cm; Wt 122.5 kg
[2017-03-29 16:58] LABS: HEMATOCRIT 33.6 % (38.0-50.0); MCHC 32.4 G/DL (30.0-36.0); MCV 92.6 FL (86-99); MEAN PLAT.VOLUME 10.1 uM^3 (9.0-12.4); PLATELET COUNT 208 K/uL (156-360); RBC DIS.WIDTH-CV 12.6 % (11.8-14.6); RBC DIS.WIDTH-SD 42.9 % (39-53); RED BLOOD COUNT 3.63 M/uL (4.00-5.50); WHITE BLOOD COUNT 6.5 K/uL (4.1-10.2)
[2017-03-29 17:08] LABS: CHLORIDE 107 mEq/L (99-109); POTASSIUM 5.1 mEq/L (3.7-5.4); SODIUM 138 mEq/L (136-147)
[2017-03-29 17:10] LABS: GLUCOSE 96 mg/dL (70-99)
[2017-03-29 17:12] LABS: ANION GAP 9 MEQ/L (2-14); TOTAL BILIRUBIN 0.3 mg/dL (0.0-1.0)
[2017-03-29 17:14] LABS: ALKALINE PHOSPHATASE 47 IU/L (3-129); GFR ESTIMATE (CALCULATED) 34 mL/min/
[2017-03-29 17:15] LABS: UREA NITROGEN (BUN) 39 mg/dL (9-23)
[2017-03-29 18:29] LABS: C DIFF TOXIN POSITIVE (NEGATIVE)
[2017-03-29 18:32] LABS: PROBE CHECK PASS
[2017-03-29 19:06] LABS: ADD MIUA? NO; BILIRUBIN NEGATIVE; BLOOD NEGATIVE; COLOR STRAW ((YELLOW)); GLUCOSE (STRIP) NEGATIVE; KETONES NEGATIVE; LEUKOCYTES NEGATIVE; NITRITE NEGATIVE; PROTEIN (STRIP) NEGATIVE; SPECIFIC GRAVITY 1.011 (1.000-1.030); UCUL ADDED? NO; UROBILINOGEN 0.2 MG/DL (0.2-1.0)
[2017-03-29 21:47] VITALS: BP 113/53
[2017-03-30 06:27] LABS: ANION GAP 8 MEQ/L (2-14); CHLORIDE 107 MEQ/L (99-109); GFR ESTIMATE (CALCULATED) 34 mL/min/; GLUCOSE 108 mg/dL (70-99); POTASSIUM 4.9 MEQ/L (3.7-5.4); SAMPLE HEMOLYSIS CHECK 0; SAMPLE ICTERIC CHECK 0; SAMPLE LIPEMIA CHECK 0; SODIUM 139 MEQ/L (136-147); UREA NITROGEN (BUN) 36 mg/dL (9-23)
[2017-03-30 06:46] LABS: EOSINOPHIL (%) 0 % (0-5); HEMATOCRIT 39.2 % (38.0-50.0); IMMATURE GRANULOCYTE (%) 2.2 % (0.0-0.7); IMMATURE GRANULOCYTE COUNT 0.1 K/uL; INSTRUMENT ABS NEUTROPHIL CT 2.7 K/uL; LYMPHOCYTE COUNT 1.2 K/uL (1.0-2.8); MCH 30.8 PG (29.0-34.0); MCHC 33.7 G/DL (30.0-36.0); MCV 91.6 FL (86-99); MONOCYTE (%) 12.9 % (3-12); MONOCYTE COUNT 0.6 K/uL (0-0.8); NEUTROPHIL COUNT 2.7 K/uL (1.8-6.4); RBC DIS.WIDTH-CV 12.8 % (11.8-14.6); RBC DIS.WIDTH-SD 42.7 % (39-53); RED BLOOD COUNT 4.28 M/uL (4.00-5.50); WHITE BLOOD COUNT 4.6 K/uL (4.1-10.2)
[2017-03-30 07:41] LABS: MEAN PLAT.VOLUME 11.3 uM^3 (9.0-12.4); PLATELET COUNT 101 K/uL (156-360)
[2017-03-30 08:06] VITALS: BP 130/70
[2017-03-30 16:34] VITALS: BP 140/80
[2017-03-30 19:44] VITALS: BP 132/67
[2017-03-31 06:59] LABS: EOSINOPHIL (%) 0.4 % (0-5); HEMATOCRIT 34.3 % (38.0-50.0); IMMATURE GRANULOCYTE (%) 1.6 % (0.0-0.7); IMMATURE GRANULOCYTE COUNT 0.1 K/uL; INSTRUMENT ABS NEUTROPHIL CT 2.5 K/uL; LYMPHOCYTE COUNT 1.9 K/uL (1.0-2.8); MCHC 33.2 G/DL (30.0-36.0); MCV 93.2 FL (86-99); MONOCYTE (%) 9.7 % (3-12); MONOCYTE COUNT 0.5 K/uL (0-0.8); NEUTROPHIL (%) 50.2 % (45-76); NEUTROPHIL COUNT 2.5 K/uL (1.8-6.4); NRBC (%) 0.4 /100 WBC (0-0); RBC DIS.WIDTH-CV 12.6 % (11.8-14.6); RBC DIS.WIDTH-SD 43.3 % (39-53); RED BLOOD COUNT 3.68 M/uL (4.00-5.50); WHITE BLOOD COUNT 5.1 K/uL (4.1-10.2)
[2017-03-31 07:04] LABS: ANION GAP 10 MEQ/L (2-14); CHLORIDE 105 MEQ/L (99-109); GFR ESTIMATE (CALCULATED) 40 mL/min/; GLUCOSE 75 mg/dL (70-99); POTASSIUM 4.8 MEQ/L (3.7-5.4); SAMPLE HEMOLYSIS CHECK 0; SAMPLE ICTERIC CHECK 0; SAMPLE LIPEMIA CHECK 0; SODIUM 138 MEQ/L (136-147); UREA NITROGEN (BUN) 33 mg/dL (9-23)
[2017-03-31 07:27] LABS: MEAN PLAT.VOLUME 10.5 uM^3 (9.0-12.4); PLAT.SUFFICIENCY ADEQUATE
[2017-03-31 07:44] LABS: PLATELET COUNT 193 K/uL (156-360)
[2017-03-31] MEDS ORDERED: VANCOCIN 250 M250 MG PO (07:47)
[2017-03-31 08:00] VITALS: BP 110/64
== END 2017-03-31 13:00 | disposition home health service (06) | DRG 392 ==
LOC: EME 16:08 → 5EAST 20:20 → ENRESERV 20:20 → EDOF 20:20 → ENRESERV 20:31 → 5EAST 21:30 → ENPENDDIS 03-31 → EDPENDDISTM 03-31 13:00 → 5EAST 03-31 13:00
PROVIDERS: Hospitalist; Internal Medicine Gastroenterology; Physician Assistant Medical
DX: K57.32 Diverticulitis of large intestine without perforation or abscess without bleeding (principal); A04.7 Enterocolitis due to Clostridium difficile; N17.9 Acute kidney failure, unspecified; E27.40 Unspecified adrenocortical insufficiency; E11.22 Type 2 diabetes mellitus with diabetic chronic kidney disease; G40.909 Epilepsy, unspecified, not intractable, without status epilepticus; F79 Unspecified intellectual disabilities; E86.0 Dehydration; E66.9 Obesity, unspecified; I12.9 Hypertensive chronic kidney disease with stage 1 through stage 4 chronic kidney disease, or unspecified chronic kidney disease; N18.9 Chronic kidney disease, unspecified; I95.1 Orthostatic hypotension; D64.9 Anemia, unspecified; E03.9 Hypothyroidism, unspecified; Z68.36 Body mass index [BMI] 36.0-36.9, adult; Z87.891 Personal history of nicotine dependence
CPT/HCPCS: 74176; 80048; 80053; 80069; 81003; 85025; 85027; 87045; 87046; 87077; 87177; 87186; 87329; 87493; 87506; 99281; 99285; J1650; J7030; S0028; S0030

== ENCOUNTER 2017-04-10 22:32 | Emergency (ER) | payer OTHER ==
[~2017-04-10] VITALS: Ht 182.9 cm; Wt 125.6 kg
[~2017-04-10 22:32] MED LIST changes: +VANCOCIN 250 M250 MG PO
[2017-04-10 23:25] LABS: HEMATOCRIT 31.1 % (38.0-50.0); MCH 30.5 PG (29.0-34.0); MCHC 33.1 G/DL (30.0-36.0); MEAN PLAT.VOLUME 10.4 uM^3 (9.0-12.4); PLATELET COUNT 183 K/uL (156-360); RBC DIS.WIDTH-CV 12.5 % (11.8-14.6); RED BLOOD COUNT 3.38 M/uL (4.00-5.50); WHITE BLOOD COUNT 5.7 K/uL (4.1-10.2)
[2017-04-10 23:31] LABS: INTER. NORMALIZED RATIO 1.1; PROTHROMBIN TIME 12.6 SEC (10.2-12.9)
[2017-04-10 23:33] LABS: CHLORIDE 107 mEq/L (99-109); POTASSIUM 4.5 mEq/L (3.7-5.4); SODIUM 138 mEq/L (136-147)
[2017-04-10 23:35] LABS: GLUCOSE 107 mg/dL (70-99)
[2017-04-10 23:36] LABS: ANION GAP 12 MEQ/L (2-14)
[2017-04-10 23:38] LABS: GFR ESTIMATE (CALCULATED) 35 mL/min/
[2017-04-10 23:39] LABS: UREA NITROGEN (BUN) 48 mg/dL (9-23)
[2017-04-10 23:44] LABS: TROP-I INTERPRETATION NEGATIVE; TROPONIN-I < 0.01 ng/mL (0.0-0.30)
[2017-04-11 02:00] VITALS: BP 137/84
== END 2017-04-11 02:01 | disposition home or self-care (01) ==
LOC: EME → EDBD 22:32 → EME 22:32
PROVIDERS: Emergency Medicine
DX: E86.0 Dehydration (principal); I95.1 Orthostatic hypotension; E78.5 Hyperlipidemia, unspecified; I10 Essential (primary) hypertension; D64.9 Anemia, unspecified; Z87.891 Personal history of nicotine dependence
CPT/HCPCS: 71020; 80048; 83880; 84484; 85027; 85610; 85730; 93005; 99281; 99284; J7030

== ENCOUNTER 2017-10-16 10:46 | Inpatient (IN) | payer OTHER ==
[~2017-10-16] VITALS: Ht 188 cm; Wt 132.4 kg
[2017-10-16 11:37] LABS: APPEARANCE CLEAR ((CLEAR)); BILIRUBIN NEGATIVE; BLOOD NEGATIVE; COLOR YELLOW ((YELLOW)); GLUCOSE (STRIP) >=500; KETONES NEGATIVE; LEUKOCYTES NEGATIVE; NITRITE NEGATIVE; PROTEIN (STRIP) NEGATIVE; SPECIFIC GRAVITY 1.015 (1.000-1.030); UCUL ADDED? NO; UROBILINOGEN 0.2 MG/DL (0.2-1.0)
[2017-10-16 11:54] LABS: HEMATOCRIT 33.3 % (38.0-50.0); HEMOGLOBIN 11.3 G/DL (12.5-16.6); MCH 31.6 PG (29.0-34.0); MCHC 33.9 G/DL (30.0-36.0); PLATELET COUNT 169 K/uL (156-360); RBC DIS.WIDTH-CV 12.4 % (11.8-14.6); RBC DIS.WIDTH-SD 42.5 % (39-53); RED BLOOD COUNT 3.58 M/uL (4.00-5.50); WHITE BLOOD COUNT 5.8 K/uL (4.1-10.2)
[2017-10-16 12:05] LABS: ALBUMIN 3.9 g/dL (3.2-4.8); CHLORIDE 106 mEq/L (99-109); POTASSIUM 5.7 mEq/L (3.7-5.4); SODIUM 137 mEq/L (136-147)
[2017-10-16 12:08] LABS: TOTAL PROTEIN 7.2 g/dL (6.4-8.3)
[2017-10-16 12:09] LABS: GLUCOSE 148 mg/dL (70-99); TOTAL BILIRUBIN 0.4 mg/dL (0.0-1.0)
[2017-10-16 12:11] LABS: ALKALINE PHOSPHATASE 93 IU/L (3-129); CREATININE 1.8 mg/dL (0.6-1.3); GFR ESTIMATE (CALCULATED) 45 mL/min/ (58.99-99999)
[2017-10-16 12:12] LABS: UREA NITROGEN (BUN) 34 mg/dL (9-23)
[2017-10-16 12:13] LABS: AST (GOT) 40 IU/L (2-34)
[2017-10-16 12:14] LABS: ALT (GPT) 44 IU/L (3-49)
[2017-10-16 14:36] LABS: C DIFF TOXIN POSITIVE (NEGATIVE)
[2017-10-16 15:28] LABS: CHLORIDE 107 mEq/L (99-109); POTASSIUM 5.3 mEq/L (3.7-5.4); SODIUM 137 mEq/L (136-147)
[2017-10-16 15:33] LABS: CREATININE 1.6 mg/dL (0.6-1.3); GFR ESTIMATE (CALCULATED) 51 mL/min/ (58.99-99999)
[2017-10-16 15:34] LABS: UREA NITROGEN (BUN) 31 mg/dL (9-23)
[2017-10-16 15:35] LABS: GLUCOSE 105 mg/dL (70-99)
[2017-10-16] MEDS ORDERED: DIVALPROEX SOD250 MG PO (17:28)
[2017-10-16] MEDS ORDERED: PROAMATINE5 MG PO (17:29)
[2017-10-16] MEDS ORDERED: HYDROCORTISONE10 MG PO (17:31)
[2017-10-16] MEDS ORDERED: CORTEF10 MG PO (17:31)
[2017-10-16] MEDS ORDERED: FAMOTIDINE20 MG PO (17:35)
[2017-10-16 21:49] VITALS: BP 113/53
[2017-10-16 23:39] VITALS: BP 113/53
[2017-10-17 06:33] LABS: BASOPHIL (%) 0.8 % (0-1); EOSINOPHIL (%) 0 % (0-5); HEMATOCRIT 33.6 % (38.0-50.0); HEMOGLOBIN 11.2 G/DL (12.5-16.6); IMMATURE GRANULOCYTE (%) 2.8 % (0.0-0.7); LYMPHOCYTE (%) 31.3 % (15-42); LYMPHOCYTE COUNT 1.6 K/uL (1.0-2.8); MCH 31.1 PG (29.0-34.0); MCHC 33.3 G/DL (30.0-36.0); MCV 93.3 FL (86-99); MONOCYTE (%) 12.7 % (3-12); MONOCYTE COUNT 0.6 K/uL (0-0.8); NEUTROPHIL (%) 52.4 % (45-76); NEUTROPHIL COUNT 2.6 K/uL (1.8-6.4); PLATELET COUNT 176 K/uL (156-360); RBC DIS.WIDTH-CV 12.4 % (11.8-14.6); RBC DIS.WIDTH-SD 42.4 % (39-53)
[2017-10-17 07:13] LABS: CHLORIDE 107 MEQ/L (99-109); CREATININE 1.4 MG/DL (0.6-1.3); GFR ESTIMATE (CALCULATED) > 59 mL/min/ (58.99-99999); GLUCOSE 77 mg/dL (70-99); POTASSIUM 5.2 MEQ/L (3.7-5.4); SODIUM 137 MEQ/L (136-147); UREA NITROGEN (BUN) 21 mg/dL (9-23)
[2017-10-17 07:45] VITALS: BP 104/58
[2017-10-17 19:30] VITALS: BP 125/78
[2017-10-17 22:50] VITALS: BP 120/76
[2017-10-18 06:08] LABS: BASOPHIL (%) 0.8 % (0-1); EOSINOPHIL (%) 0 % (0-5); HEMATOCRIT 33.5 % (38.0-50.0); HEMOGLOBIN 10.8 G/DL (12.5-16.6); IMMATURE GRANULOCYTE (%) 2.7 % (0.0-0.7); LYMPHOCYTE (%) 33.7 % (15-42); LYMPHOCYTE COUNT 1.6 K/uL (1.0-2.8); MCH 29.7 PG (29.0-34.0); MCHC 32.2 G/DL (30.0-36.0); MONOCYTE COUNT 0.6 K/uL (0-0.8); NEUTROPHIL (%) 50.8 % (45-76); NEUTROPHIL COUNT 2.5 K/uL (1.8-6.4); PLATELET COUNT 162 K/uL (156-360); RBC DIS.WIDTH-CV 12.2 % (11.8-14.6); RBC DIS.WIDTH-SD 41.4 % (39-53); RED BLOOD COUNT 3.64 M/uL (4.00-5.50); WHITE BLOOD COUNT 4.8 K/uL (4.1-10.2)
[2017-10-18 06:47] LABS: ALBUMIN 3.5 G/DL (3.2-4.8); ALKALINE PHOSPHATASE 56 IU/L (3-129); ALT (GPT) 26 IU/L (3-49); AST (GOT) 19 IU/L (2-34); CHLORIDE 105 MEQ/L (99-109); CREATININE 1.4 MG/DL (0.6-1.3); GFR ESTIMATE (CALCULATED) > 59 mL/min/ (58.99-99999); POTASSIUM 5.2 MEQ/L (3.7-5.4); SODIUM 138 MEQ/L (136-147); UREA NITROGEN (BUN) 19 mg/dL (9-23)
[2017-10-18 06:51] LABS: GLUCOSE 148 mg/dL (70-99); TOTAL BILIRUBIN 0.3 MG/DL (0.0-1.0)
[2017-10-18 07:06] VITALS: BP 140/86
[2017-10-18] MEDS ORDERED: VANCOMYCIN125 MG/2.5 PO (09:06)
== END 2017-10-18 13:19 | disposition home or self-care (01) | DRG 372 ==
LOC: EME 10:46 → EDOF 18:06 → 5EAST 18:06 → ENRESERV 18:07 → 5EAST 21:39 → ENPENDDIS 10-18 13:30
PROVIDERS: Hospitalist; Physician Assistant
DX: A04.71 Enterocolitis due to Clostridium difficile, recurrent (principal); E87.5 Hyperkalemia; E27.40 Unspecified adrenocortical insufficiency; E03.9 Hypothyroidism, unspecified; E78.5 Hyperlipidemia, unspecified; F70 Mild intellectual disabilities; G40.909 Epilepsy, unspecified, not intractable, without status epilepticus; I12.9 Hypertensive chronic kidney disease with stage 1 through stage 4 chronic kidney disease, or unspecified chronic kidney disease; E11.22 Type 2 diabetes mellitus with diabetic chronic kidney disease; N18.3 Chronic kidney disease, stage 3 (moderate); K57.32 Diverticulitis of large intestine without perforation or abscess without bleeding; D64.9 Anemia, unspecified; Z87.891 Personal history of nicotine dependence
CPT/HCPCS: 36415; 74176; 80048; 80048 91; 80053; 81003; 83630; 85025; 85027; 87493; 87506; 93005; 99281; 99284; J1644; J2405; J7030; S0030

== ENCOUNTER 2017-10-24 11:53 | Emergency (ER) | payer OTHER ==
[~2017-10-24] VITALS: Ht 182.9 cm; Wt 131.7 kg
[~2017-10-24 11:53] MED LIST changes: +CORTEF10 MG PO; +DIVALPROEX SOD250 MG PO; +HYDROCORTISONE10 MG PO; +PROAMATINE5 MG PO; +VANCOMYCIN125 MG/2.5 PO
[2017-10-24 13:07] LABS: BASOPHIL (%) 0.9 % (0-1); BASOPHIL COUNT 0.1 K/uL (0-0.1); EOSINOPHIL (%) 0 % (0-5); HEMATOCRIT 33.7 % (38.0-50.0); HEMOGLOBIN 11.2 G/DL (12.5-16.6); LYMPHOCYTE (%) 25.5 % (15-42); LYMPHOCYTE COUNT 1.7 K/uL (1.0-2.8); MCHC 33.2 G/DL (30.0-36.0); MCV 93.4 FL (86-99); MONOCYTE (%) 14.9 % (3-12); NEUTROPHIL (%) 56.7 % (45-76); NEUTROPHIL COUNT 3.7 K/uL (1.8-6.4); PLATELET COUNT 175 K/uL (156-360); RBC DIS.WIDTH-CV 12.4 % (11.8-14.6); RBC DIS.WIDTH-SD 42.5 % (39-53); RED BLOOD COUNT 3.61 M/uL (4.00-5.50); WHITE BLOOD COUNT 6.5 K/uL (4.1-10.2)
[2017-10-24 13:20] LABS: CHLORIDE 107 mEq/L (99-109); POTASSIUM 5.8 mEq/L (3.7-5.4); SODIUM 137 mEq/L (136-147)
[2017-10-24 13:21] LABS: GLUCOSE 91 mg/dL (70-99)
[2017-10-24 13:25] LABS: GFR ESTIMATE (CALCULATED) 42 mL/min/ (58.99-99999)
[2017-10-24 13:26] LABS: CREATININE 1.9 mg/dL (0.6-1.3)
[2017-10-24 13:27] LABS: UREA NITROGEN (BUN) 36 mg/dL (9-23)
[2017-10-24 14:01] LABS: VALPROIC ACID (DEPAKOTE) 66.1 MCG/ML (50-100)
[2017-10-24 14:43] LABS: CHLORIDE 106 mEq/L (99-109); POTASSIUM 4.9 mEq/L (3.7-5.4); SODIUM 136 mEq/L (136-147)
[2017-10-24 14:48] LABS: GFR ESTIMATE (CALCULATED) 40 mL/min/ (58.99-99999); GLUCOSE 153 mg/dL (70-99)
[2017-10-24 14:49] LABS: UREA NITROGEN (BUN) 37 mg/dL (9-23)
[2017-10-24 15:32] VITALS: BP 110/58
== END 2017-10-24 15:33 | disposition home or self-care (01) ==
LOC: EME 11:53
PROVIDERS: Emergency Medicine
DX: R42 Dizziness and giddiness (principal); E86.0 Dehydration; E11.9 Type 2 diabetes mellitus without complications; I10 Essential (primary) hypertension; E78.5 Hyperlipidemia, unspecified; R56.9 Unspecified convulsions; F70 Mild intellectual disabilities; Z87.891 Personal history of nicotine dependence
CPT/HCPCS: 80048; 80048 91; 80164; 85025; 93005; J7030